=== PATIENT | male | born 1970 | race Caucasian/White ===

== ENCOUNTER 2021-09-08 14:31 | Observation (INO) | payer OTHER ==
[~2021-09-08] VITALS: Ht 175.3 cm; Wt 111.1 kg
[2021-09-08 15:04] LABS: BASOPHILS PERCENT AUTO 1 % (0-2); EOSINOPHILS ABSOLUTE AUTO 0.53 K/mm3 (0.00-0.68); EOSINOPHILS PERCENT AUTO 4 % (0-6); Hematocrit 46.9 % (37.0-53.0); Hemoglobin 15.8 g/dL (13.5-17.5); IMMATURE GRAN PERCENT AUTO 2 % (0-1); LYMPHOCYTES ABSOLUTE AUTO 2.72 K/mm3 (0.84-5.20); LYMPHOCYTES PERCENT AUTO 20 % (21-46); MONOCYTES ABSOLUTE AUTO 0.49 K/mm3 (0.16-1.47); MONOCYTES PERCENT AUTO 4 % (4-13); Mean Corpuscular HGB 30.4 pg (26.0-34.0); Mean Corpuscular HGB Conc 33.7 g/dL (31.5-36.5); Mean Corpuscular Volume 90 fL (80-100); Mean Platelet Volume 9.4 fL (9.1-12.4); NEUTROPHILS ABSOLUTE AUTO 9.69 K/mm3 (1.96-9.15); NEUTROPHILS PERCENT AUTO 71 % (41-73); Platelet Count 312 K/mm3 (150-400); RDW Coefficient Variation 12.4 % (11.7-14.2); RDW Standard Deviation 40.6 fL (35.1-46.3); White Blood Cell Count 13.73 K/mm3 (4.00-11.30)
[2021-09-08] MEDS ORDERED: ESCI20 PO (15:22)
[2021-09-08] MEDS ORDERED: [UNRECOGNIZED DRUG - CODE] PO (15:22)
[2021-09-08 15:23] LABS: Alanine Aminotransfer (ALT/SGP 49 U/L (12-78); Albumin, Blood 3.7 g/dL (3.4-5.0); Albumin/Globulin Ratio 0.9 (0.8-1.8); Alk Phos 72 U/L (50-136); Anion Gap 6 mmol/L (6-16); Aspartate Aminotrans (AST/SGOT 63 U/L (12-37); Bilirubin, Total 0.6 mg/dL (0.1-1.0); Blood Urea Nitrogen 10 mg/dL (8-24); Bun/Creatinine Ratio 12.4 (12.0-20.0); CO2, Blood 27 mmol/L (21-32); Calcium, Blood 8.9 mg/dL (8.5-10.1); Chloride, Blood 108 mmol/L (98-108); Creatinine, Blood 0.81 mg/dL (0.60-1.20); Ethanol (Alcohol), Blood, Med <3 mg/dL; Globulin, Blood 4.1 g/dL (2.2-4.0); Glomerular Filtration Rate >60 (60-); Glucose, Blood 118 mg/dL (70-99); International Normalized Ratio 0.95; Potassium, Blood 4.4 mmol/L (3.5-5.5); Sodium, Blood 141 mmol/L (136-145); Total Protein, Blood 7.8 g/dL (6.4-8.2)
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
--- NOTE | 2021-09-09 16:26 | NUR ---
BANDAGES REMOVED FROM BUE; EMOLLIENT APPLIED, COVERED WITH NON-ADHESIVE BANDAGE AND KERLIX.
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
[2021-09-10] MEDS ORDERED: Norco 7.5-3251 EACH PO (12:44)
--- NOTE | 2021-09-10 15:51 | NUR ---
DISCHARGE SUMMARY PT A&OX4, VSS/RA, AMBULATING INDEPENDENTLY, VOIDING WELL, CHANTEL PO, PAIN MANAGED WELL WITH NORCO 7.5 MG. DC INSTRUCTIONS PROVIDED. PT REP UNDERSTANDING THOSE INSTRUCTIONS INCLUDING DEEP BREATHING, SHORT FREQUENT AMB WITH REST PERIODS, SPLINTING, FU WITH PCP, FU WITH SURGEON PRN, SHOWER WASH/KEEP ABRASIONS CLEAN, PAIN MEDS AT [facility]. 2 IVS DC'D.
== END 2021-09-10 13:50 | disposition home or self-care (01) ==
LOC: ER 14:31 → MEDS 14:32 → SURS 14:32
PROVIDERS: Emergency Medicine; ADMIT Surgery
DX: S22.41XA Multiple fractures of ribs, right side, initial encounter for closed fracture (principal); V20.4XXA Motorcycle driver injured in collision with pedestrian or animal in traffic accident, initial encounter; S40.811A Abrasion of right upper arm, initial encounter; S30.810A Abrasion of lower back and pelvis, initial encounter; S30.811A Abrasion of abdominal wall, initial encounter; Z88.6 Allergy status to analgesic agent
CPT/HCPCS: 70450; 71045; 71046; 71260; 72125; 72170; 74177; 80053; 83605; 83690; 85025; 85610; 86850; 86900; 86901; 93005; 93010; 96372; 96375; 96376; 97116; 97162; 97165; 97530; 97535; A9270; G0378; G0480; J1170; J1650; J2405; J7030; J7120; Q9967